=== PATIENT | female | born 2005 | race Caucasian/White ===

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

== ENCOUNTER 2023-08-13 19:17 | Emergency (ER) | payer OTHER, SELFPAY ==
[2023-08-13 19:19] VITALS: BP 134/89; PULSE 89; RESP 18; TEMP 37.1; O2SAT 98; BMI 19.0
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
--- NOTE | 2023-08-13 19:37 | DI.US.S_ITS ---
PROCEDURE: US PELVIC COMPLETE INDICATIONS: RIGHT PELVIC PAIN TECHNIQUE: Real-time scanning was performed of the pelvic organs, with image documentation. Additional endovaginal scanning was necessary due to incomplete visualization of the adnexal and endometrial structures by transabdominal scanning. COMPARISON: None. FINDINGS: Uterus: Uterus is anteverted and normal in size at 6.2 x 2.9 x 4.6 cm. The myometrium is homogeneous. The endometrium measures 2.4 mm combined thickness. No uterine fibroids. Ovaries: The right ovary measures 1.2 x 3.4 x 1.5 cm, with a calculated ovarian volume of 3.0 cc. The left ovary measures 2.0 x 2.1 x 1.3 cm, with a calculated ovarian volume of 2.8 cc. The ovaries have a normal sonographic appearance. Normal vascularity of the bilateral ovaries. 12 follicles can be seen in each ovary. No adnexal masses are seen. Other: No pathologic free abdominal or pelvic fluid. IMPRESSION: The ovaries are normal in appearance with flow. No acute findings. We strive to produce accurate, complete, and clear reports of imaging services. To assist us in improving patient care, this report was composed using standard report templates and voice recognition software. Therefore, it may contain abnormal punctuation, insertions and/or omissions. Occasional wrong-word or sound-alike substitutions may occur. Though we review the report and make efforts to correct it, we do recommend that the report be read carefully in proper context to recognize any text inaccuracies. Dictated by: Won Alberto M.D. on 08/13/2023 at 20:39 Approved by: Won Alberto M.D. on 08/13/2023 at 20:40
--- NOTE | 2023-08-13 19:37 | DI.US.S_ITS ---
PROCEDURE: US ABDOMEN LIMITED INDICATIONS: RUQ PAIN TECHNIQUE: Real-time scanning was performed of the abdominal and retroperitoneal organs, with image documentation. COMPARISON: None. FINDINGS: Liver: Mild hepatomegaly at 17.5 cm. The liver is mildly increased in echogenicity, most consistent with hepatic steatosis. Gallbladder: No gallstones. No wall thickening. No pericholecystic edema. Negative sonographic Caldera's sign. Biliary ducts: Intrahepatic bile ducts are non-dilated. Extrahepatic bile duct caliber measures 3.1 mm. Normal is 6-7 mm or less in diameter, or 10 mm or less post-cholecystectomy. Pancreas: Visualized portions of the pancreas are sonographically normal. Miscellaneous: Appendix is not seen. IMPRESSION: 1. Gallbladder is within normal limits. No biliary ductal dilatation. 2. Appendix is not seen. 3. Mild hepatomegaly and hepatic steatosis. Dictated by: Won Alberto M.D. on 08/13/2023 at 20:38 Approved by: Won Alberto M.D. on 08/13/2023 at 20:39
[2023-08-13 19:54] VITALS: PULSE 76; O2SAT 100
[2023-08-13 20:00] VITALS: PULSE 80; O2SAT 100
[2023-08-13 20:30] VITALS: PULSE 76; O2SAT 100
--- NOTE | 2023-08-13 20:34 | DI.RAD.S_ITS ---
PROCEDURE: XR ABDOMEN 1V INDICATIONS: abdominal pain, ? constipation TECHNIQUE: One view of the abdomen acquired. COMPARISON: None. FINDINGS: Surgical changes and devices: None. Bowel: Bowel gas pattern is normal. Moderate burden of stool within the colon. Soft tissues: No suspicious abdominal calcifications. Visualized solid organ contours appear normal in size. Bones: No suspicious bony lesions. IMPRESSION: Moderate burden of stool within the colon. Dictated by: Won Alberto M.D. on 08/13/2023 at 20:54 Approved by: Won Alberto M.D. on 08/13/2023 at 20:55
[2023-08-13 21:00] VITALS: BP 108/66; PULSE 72; O2SAT 100
== END 2023-08-13 21:32 | disposition home or self-care (01) ==
PROVIDERS: Emergency Provider Emergency Medicine
DX: R10.31 Right lower quadrant pain (principal); K59.00 Constipation, unspecified
CPT/HCPCS: 36415; 74018; 76705; 76830; 76856; 81003; 81025; 93975; 99284